=== PATIENT | male | born 1950 | race Caucasian/White ===

== ENCOUNTER 2016-07-06 10:01 | Emergency (ER) | payer OTHER, MEDICARE ==
--- NOTE | 2016-07-06 11:49 | RAD ---
07/06/2016 11:45 AM CHEST - 2 VIEWS History: Cough and congestion. Comparison: 07/29/2012 Findings: Two views of the chest are obtained. The lungs are clear with out effusion or pneumothorax. The cardiomediastinal silhouette is unremarkable.. The osseous structures are intact.. IMPRESSION: No acute intrathoracic process.
== END 2016-07-06 12:06 | disposition home or self-care (01) ==
LOC: ED 10:01
DX: J40 Bronchitis, not specified as acute or chronic (principal); I10 Essential (primary) hypertension